=== PATIENT | female | born 1980 | race American Indian/Alaskan Native ===

== ENCOUNTER 2019-04-18 11:28 | Emergency (ER) | payer OTHER, MEDICAID ==
--- NOTE | 2019-04-18 11:54 | Event Note ---
ED Screening Note Date of service: 04/18/19 Time: 11:51 ED Screening Note: 39 y/o female come rt flank pain since Wednesday. Pain with urination. This initial assessment/diagnostic orders/clinical plan/treatment(s) is/are subject to change based on patients health status, clinical progression and re- assessment by fellow clinical providers in the ED. Further treatment and workup at subsequent clinical providers discretion. Patient/guardian urged not to elope from the ED as their condition may be serious if not clinically assessed and managed. Initial orders include: ct, ua hcg
[2019-04-18 12:06] VITALS: BP 139/94
[2019-04-18 12:34] LABS: Hematocrit 38.8 % (30.3-42.9); Hemoglobin 13.2 gm/dl (10.1-14.3); Mean Corpuscular HGB Conc 34 % (30-34); Mean Corpuscular Volume 92 fl (79-97); Platelet Count 311 K/mm3 (140-440); Red Blood Count 4.21 M/mm3 (3.65-5.03); Red Cell Distribution Width 13.5 % (13.2-15.2)
[2019-04-18] MEDS ORDERED: IBUPROFEN PO ONE (12:40)
--- NOTE | 2019-04-18 12:40 | Emergency Department Report ---
ED Dysuria HPI - HPI Chief Complaint: Abdominal Pain Stated Complaint: FLANK PAIN,NAUSEA Time Seen by Provider: 04/18/19 12:06 Location of Discomfort: Urethra (dysuria) Severity: Mild Symptoms: Dysuria: Yes, Frequency: No, Suprapubic Pain: No, Flank Pain: Yes, Fever: No, Hematuria: No, Abdominal Pain: No, Previous UTI's: No Other History: Patient comes to the ER with bilateral flank pain 1 day. Patient has a history of acute and chronic kidney stones. But she does not have a urologist. She comes in today with bilateral flank pain. ED Review of Systems ROS: Stated complaint: FLANK PAIN,NAUSEA Other details as noted in HPI Comment: All other systems reviewed and negative ED Past Medical Hx - Past Medical History Previous Medical History?: Yes Hx Seizures: Yes Hx Kidney Stones: Yes - Surgical History Past Surgical History?: Yes Hx Cholecystectomy: Yes Additional Surgical History: fallopain tube removal. multiple surgeries for kidney stones - Social History Smoking Status: Never Smoker Substance Use Type: None - Medications Home Medications: Home Medications Medication Instructions Recorded Confirmed Last Taken Type Ondansetron [Zofran Odt] 4 mg PO Q8HR PRN #10 tab.rapdis 04/18/19 Unknown Rx Sulfamethoxazole/Trimethoprim 1 each PO BID #5 tablet 04/18/19 Unknown Rx [Bactrim DS TAB] Tamsulosin [Flomax] 0.4 mg PO QDAY #10 cap 04/18/19 Unknown Rx traMADol [Ultram] 50 mg PO Q6HR PRN #10 tablet 04/18/19 Unknown Rx Dysuria Exam - Exam General: Vital signs noted. No distress. Alert and acting appropriately. Exam: Yes Moist Mucous Membranes, No CVA Tenderness, No Abdominal Tenderness, No Rigidity or Guarding Labs: Lab Results 04/18/19 Range/Units 12:21 WBC 5.4 (4.5-11.0) K/mm3 RBC 4.21 (3.65-5.03) M/mm3 Hgb 13.2 (10.1-14.3) gm/dl Hct 38.8 (30.3-42.9) % MCV 92 (79-97) fl MCH 31 (28-32) pg MCHC 34 (30-34) % RDW 13.5 (13.2-15.2) % Plt Count 311 (140-440) K/mm3 ED Course Vital Signs 04/18/19 11:49 Temperature 98.0 F Pulse Rate 72 Respiratory 13 Rate Blood Pressure 139/94 [Left] O2 Sat by Pulse 97 Oximetry - Reevaluation(s) Reevaluation #1: 04/18/19 15:39 MOTRIN FOR PAIN- SHE REFUSED THEN 1L NS, ZOFRAN AND TORADOL FOR PAIN THEN SHE REQUESTED STRONGER PAIN MEDS GIVEN 1 LORTAB ON DC AGAIN REQUESTING MORE PAIN MEDS. CT NOTED WILL HAVE FOLLOW UP WITH URO FOR HER PAIN ED Medical Decision Making - Lab Data Result diagrams: 04/18/19 12:21 04/18/19 12:21 - Radiology Data Radiology results: report reviewed, image reviewed - Medical Decision Making Vital Signs 04/18/19 11:49 Temperature 98.0 F Pulse Rate 72 Respiratory 13 Rate Blood Pressure 139/94 [Left] O2 Sat by Pulse 97 Oximetry Lab Results 04/18/19 04/18/19 04/18/19 Range/Units 12:21 12:21 12:40 WBC 5.4 (4.5-11.0) K/mm3 RBC 4.21 (3.65-5.03) M/mm3 Hgb 13.2 (10.1-14.3) gm/dl Hct 38.8 (30.3-42.9) % MCV 92 (79-97) fl MCH 31 (28-32) pg MCHC 34 (30-34) % RDW 13.5 (13.2-15.2) % Plt Count 311 (140-440) K/mm3 Sodium 140 (137-145) mmol/L Potassium 3.8 (3.6-5.0) mmol/L Chloride 104.2 (98-107) mmol/L Carbon Dioxide 27 (22-30) mmol/L Anion Gap 13 mmol/L BUN 8 (7-17) mg/dL Creatinine 0.9 (0.7-1.2) mg/dL Estimated GFR > 60 ml/min BUN/Creatinine Ratio 9 % Glucose 99 (65-100) mg/dL Calcium 8.8 (8.4-10.2) mg/dL Urine Color Red (Yellow) Urine Turbidity Slightly-cloudy (Clear) Urine pH 6.0 (5.0-7.0) Ur Specific Newborn 1.016 (1.003-1.030) Urine Protein 100 mg/dl (Negative) mg/dL Urine Glucose (UA) Neg (Negative) mg/dL Urine Ketones Neg (Negative) mg/dL Urine Blood Lg (Negative) Urine Nitrite Neg (Negative) Ur Reducing Substances Not Reportable Urine Bilirubin Neg (Negative) Urine Ictotest Not Reportable Urine Urobilinogen < 2.0 (<2.0) mg/dL Ur Leukocyte Esterase Tr (Negative) Urine WBC (Auto) 32.0 H (0.0-6.0) /HPF Urine RBC (Auto) > 182.0 (0.0-6.0) /HPF U Epithel Cells (Auto) 26.0 H (0-13.0) /HPF Urine Bacteria (Auto) 1+ (Negative) /HPF Urine Mucus Few /HPF Urine HCG, Qual Negative (Negative) REFUSED MOTRIN FOR PAIN NS/ZOFRAN/TORADOL FOR PAIN STILL REQUESTING PAIN MEDS NO VOMITING PLAYING ON PHONE. UA NOTED LABS NOTED ROCEPHIN IV CT NOTED NO OBSTRUCTION NO HYDRO WBC NORMAL VSS DC HOME WITH URO FOLLOW UP. VSS, AMBULATORY AND TAKING PO Critical care attestation.: If time is entered above; I have spent that time in minutes in the direct care of this critically ill patient, excluding procedure time. ED Disposition Clinical Impression: Kidney stone, UTI (urinary tract infection), Renal colic, bilateral Disposition: DC-01 TO HOME OR SELFCARE Is pt being admited?: No Does the pt Need Aspirin: No Condition: Stable Instructions: Kidney Stones (ED) Prescriptions: Sulfamethoxazole/Trimethoprim [Bactrim DS TAB] 1 each PO BID #5 tablet Tamsulosin [Flomax] 0.4 mg PO QDAY #10 cap traMADol [Ultram] 50 mg PO Q6HR PRN #10 tablet PRN Reason: Pain Ondansetron [Zofran Odt] 4 mg PO Q8HR PRN #10 tab.rapdis PRN Reason: Vomiting Referrals: GRISELDA EASON MD [Staff Physician] - 3-5 Days Time of Disposition: 15:23
[2019-04-18 12:48] LABS: BUN/Creatinine Ratio 9; Blood Urea Nitrogen 8 mg/dL (7-17); Calcium 8.8 mg/dL (8.4-10.2); Hemolysis Index 12
[2019-04-18 12:57] LABS: HCG Qualitative,Urine Negative (Negative)
[2019-04-18 12:59] LABS: Bacteria,Urine 1+ /HPF (Negative); Bilirubin,Urine NEG (Negative); Blood,Urine LG (Negative); Color,Urine Red (Yellow); Mucus,Urine FEW /HPF; Urobilinogen,Urine < 2.0 mg/dL (<2.0)
[2019-04-18 13:02] LABS: RBC,Urine > 182.0 /HPF (0.0-6.0)
[2019-04-18] MEDS ORDERED: TORADOL IV ONE (13:13)
[2019-04-18] MEDS ORDERED: ROCEPHIN/NS 1 GM/50 ML 1 GM/50 ML BAG IV ONE (13:13)
[2019-04-18] MEDS ORDERED: NACL 0.9% 1000 ML 1,000 ML IV ONE (13:13)
[2019-04-18] MEDS ORDERED: ZOFRAN IV ONE (13:13)
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
[2019-04-18] MEDS ORDERED: NORCO 5/325 PO ONE (15:13)
[2019-04-18] MEDS ORDERED: NORCO 5/325 ONE (15:17)
== END 2019-04-18 15:46 | disposition home or self-care (01) ==
LOC: ED 11:28
DX: N20.0 Calculus of kidney (principal); N39.0 Urinary tract infection, site not specified; Z79.899 Other long term (current) drug therapy; Z90.49 Acquired absence of other specified parts of digestive tract; Z98.890 Other specified postprocedural states
CPT/HCPCS: 36415; 74176; 80048; 81001; 81025; 85027; 87086; 96365; 96375; 99284; J0696; J1885; J2405; J7030

== ENCOUNTER 2019-10-08 20:27 | Emergency (ER) | payer OTHER, MEDICAID ==
[2019-10-08 20:49] VITALS: BP 127/81
[2019-10-08] MEDS ORDERED: IBUPROFEN 800 MG TAB PO ONE (21:07)
[2019-10-08] MEDS ORDERED: oxyCODONE /ACETAMINOPHEN 5-325MG TAB PO ONE (21:07)
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
== END 2019-10-08 23:35 | disposition home or self-care (01) ==
LOC: ED 20:27
DX: S13.9XXA Sprain of joints and ligaments of unspecified parts of neck, initial encounter (principal); S93.402A Sprain of unspecified ligament of left ankle, initial encounter; S43.401A Unspecified sprain of right shoulder joint, initial encounter; M25.551 Pain in right hip; G43.909 Migraine, unspecified, not intractable, without status migrainosus; Z87.442 Personal history of urinary calculi; Z79.899 Other long term (current) drug therapy; Z90.49 Acquired absence of other specified parts of digestive tract; V49.59XA Passenger injured in collision with other motor vehicles in traffic accident, initial encounter; Y93.89 Activity, other specified; Y92.410 Unspecified street and highway as the place of occurrence of the external cause; Y99.8 Other external cause status
CPT/HCPCS: 72040